=== PATIENT | male | born 1975 | race Hispanic/Latino ===

== ENCOUNTER 2018-04-01 09:56 | Emergency (ER) | payer SELFPAY ==
[2018-04-01 10:34] LABS: #Basophils 0.1 thou/uL (0.0-0.2); #Eosinphils 0.4 thou/uL (0.0-0.7); #Lymphocytes 2.3 thou/uL (1.20-3.40); #Monocytes 1.1 thou/uL (0.11-0.59); #Neutrophils 5.2 thou/uL (1.40-6.50); %Basophils 1.2 % (0.0-1.0); %Eosinophils 4.7 % (0.0-10.0); %Lymphocytes 25.3 % (21.0-51.0); %Monocytes 11.8 % (0.0-10.0); Hemoglobin 15.7 g/dL (14.0-18.0); Mean Corpuscular HGB CONC 33.5 g/dL (32.0-36.0); Mean Corpuscular Volume 86.4 fl (80.0-94.0); Mean Platelet Volume 6.3 fL (7.4-10.4); Platelet Count 329 thou/uL (130-400); RBC Distribution Width 12.3 % (11.5-14.5); Red Blood Cell (RBC) Count 5.43 mill/uL (4.70-6.10); White Blood Cell (WBC) Count 9.2 thou/uL (4.8-10.8)
[2018-04-01 10:42] LABS: Bilirubin Negative (Negative); Blood, Urine Negative (Negative); Clarity CLEAR (Clear); Glucose, Urine (Dipstick) Negative (Negative); Leukocyte Negative (Negative); Nitrite Negative (Negative); Protein, Urine (Dipstick) Negative (Neg-Trace)
[2018-04-01 11:01] LABS: ALT (SGPT) 35 U/L (8-55); AST (SGOT) 22 U/L (5-34); Albumin 4.2 g/dL (3.5-5.0); Alkaline Phosphatase 84 U/L (40-150); Anion Gap 10 mmol/L (10-20); BUN (Urea Nitrogen) 13 mg/dL (8.9-20.6); Bilirubin, Total 0.7 mg/dL (0.2-1.2); Calc. Creatinine Clearance 0 mL/min (70-130); Calcium 9.5 mg/dL (7.8-10.44); Carbon Dioxide 26 mmol/L (22-29); Chloride 104 mmol/L (98-107); Estimated GFR-MDRD Greater than 90; Globulin 3.4 g/dL (2.4-3.5); Glucose 97 mg/dL (70-105); Lipase 20 U/L (8-78); Potassium 3.8 mmol/L (3.5-5.1); Protein, Total 7.6 g/dL (6.0-8.3); Sodium 136 mmol/L (136-145)
--- NOTE | 2018-04-01 11:53 | ULT ---
RIGHT UPPER QUADRANT GALLBLADDER ULTRASOUND: HISTORY: Abdominal pain. COMPARISON: None. TECHNIQUE: Real-time Chaudhari-scale and color and spectral analysis of the right upper quadrant of the abdomen is pe rformed. FINDINGS: The visualized portions of the pancreas are unremarkable. Increased hepatic echotexture. The common bile duct is normal. The main portal vein has patent antegrade flow. The gallbladder is normal. Gallbladder wall thickness is normal. The right kidney measures 11.4 x 6 x 5.9 cm, without mass, hydronephrosis, or abnormal calcifications . IMPRESSION: 1. Normal gallbladder. 2. Mildly increased hepatic echotexture, suggesting steatosis versus hepatocellular disease. POS: [facility]
== END 2018-04-01 14:04 | disposition home or self-care (01) ==
LOC: ERS 09:56
DX: R10.11 Right upper quadrant pain (principal)
CPT/HCPCS: 76705; 80053; 81003; 83690; 85025

== ENCOUNTER 2019-05-25 20:35 | Emergency (ER) | payer SELFPAY ==
[2019-05-25] MEDS ORDERED: Proparacaine 0.5% Opth 15 ML BOT ONE (21:16)
[2019-05-25] MEDS ORDERED: Fluorescein Opthalmic Strip ONE (21:16)
== END 2019-05-25 21:41 | disposition home or self-care (01) ==
LOC: ERS 20:35
DX: H00.16 Chalazion left eye, unspecified eyelid (principal)
CPT/HCPCS: 99283